=== PATIENT | female | born 2000 | race Caucasian/White ===

== ENCOUNTER 2022-04-07 11:27 | Emergency (ER) | payer MEDICAID, SELFPAY ==
--- NOTE | ~2022-04-07 | US_ITS ---
EXAMINATION: US OB <=14 wk fetus w TV DATE: 04/07/2022 14:56 INDICATION: Metal bleeding. Pelvic cramping. TECHNIQUE: Real-time transabdominal and transvaginal pelvic ultrasound was performed. COMPARISON: None. FINDINGS: TRANSABDOMINAL ULTRASOUND: The uterus measures 7.4 x 5.0 x 6.1 cm. TRANSVAGINAL ULTRASOUND: There is an intrauterine gestational sac. A yolk sac is identified. The fet al crown rump length measures 0.5 cm, which correlates with an estimated gestational age of 6 weeks a nd 1 day(s) (+/-) 3 day(s). heart motion is identified by cine imaging. There is a small subcho rionic hematoma. The right ovary measures 2.7 x 2.3 x 2.6 cm. The left ovary measures 2.6 x 1.7 x 1.4 cm. There is trace free fluid in the pelvis. IMPRESSION: 1. Single living intrauterine gestation with estimated date of delivery of 11/30/2022. 2. Small subchorionic hematoma. Reviewed, dictated and finalized at location A. IMPRESSION: 1. Single living intrauterine gestation with estimated date of delivery of 11/30. 2. Small subchorionic hematoma.
[2022-04-07 11:46] VITALS: BP 112/79; PULSE 109; RESP 14; TEMP 36.7; O2SAT 100
[2022-04-07 11:57] LABS: Basophils Percent Auto 0.6 % (0.2-1.2); Eosinophils Absolute Auto 0.1 K/mm3 (0-0.3); Eosinophils Percent Auto 1.5 % (0-4.4); Hematocrit 39.3 % (37.0-47.0); Hemoglobin 13.9 g/dL (12.0-15.0); Immature Granulocyte Absolute 0.02 K/mm3 (0.00-0.031); Immature Granulocyte Percent A 0.3 % (0-0.5); Lymphocytes Absolute Auto 2.09 K/mm3 (0.9-3.2); Lymphocytes Percent Auto 30.6 % (18.3-44.2); Mean Corpuscular HGB Conc 35.4 g/dl (32-36); Mean Corpuscular Hemoglobin 30.3 pg (26-34); Mean Corpuscular Volume 85.6 fl (80-100); Mean Platelet Volume 9.3 fl (7.4-10.4); Monocytes Absolute Auto 0.4 K/mm3 (0.1-0.6); Neutrophils Absolute Auto 4.2 K/mm3 (1.3-6.7); Platelet Count Result 229 k/mm3 (150-375); Red Blood Count 4.59 M/mm3 (4.2-5.4); White Blood Count 6.8 K/mm3 (4.5-10.0)
--- NOTE | 2022-04-07 13:49 | ED.FEMALEGU ---
HPI - Female Genitourinary General Chief complaint: Vaginal Bleeding <Ene Irizarry PA-C - Last Filed: 04/07/22 18:57> Stated complaint: miscarrying possibly <Ene Irizarry PA-C - Last Filed: 04/07/22 18:57> Time Seen by Provider: 04/07/22 13:36 <Ene Irizarry PA-C - Last Filed: 04/07/22 18:57> History of Present Illness HPI Narrative: Patient is a 21-year-old female who is currently about 5 weeks by last menstrual cycle here for evaluation of vaginal spotting and right-sided abdominal pain for the past 3 hours. Patient states that she has noted bright red blood in her underwear, but has not had enough bleeding to go through her menstrual pad. She also notes a cramping in the right side of her pelvis that has been intermittent in nature that she likens to her menstrual cramps. Patient expresses concern that she is miscarrying. She has not yet established with an UI SOFTWARE DEVELOPER. Has not yet had an ultrasound to confirm IUP. She has not taken any medication for pain, denies nausea, vomiting, fevers, chills, vaginal discharge, dysuria urgency or frequency, leg swelling. <Ene Irizarry PA-C - Last Filed: 04/07/22 18:57> Review of Systems Review of Systems: Gen.: Denies fevers or chills Eyes: Denies eye pain or visual change ENT: Denies congestion Respiratory: Denies shortness of breath or cough CV: Denies chest pain or palpitations GI: Reports abdominal pain. Denies nausea, emesis or diarrhea reports vaginal bleeding. Denies burning, urgency, frequency or hematuria Musculoskeletal: Denies back pain or muscle pain Neuro: Denies numbness, tingling, weakness or focal weakness Skin: Denies rash Except as documented, all other systems reviewed and negative <Ene Irizarry PA-C - Last Filed: 04/07/22 18:57> Exam Narrative: APPEARANCE: Well appearing, no pain in distress, well-nourished. Head: Normocephalic and atraumatic. EYES: PERRLA/EOMI, conjunctivae clear NOSE: No nasal drainage EARS: External ear normal in appearance THROAT: Oropharynx is clear. Mucous membranes are moist. NECK: Supple. No adenopathy, no masses. RESPIRATORY: Airway patent, respirations nonlabored. Clear to auscultation bilaterally, no rales, rhonchi, wheezing. CARDIOVASCULAR: Regular rate and rhythm without murmurs, rubs, or gallops. ABDOMINAL: Normoactive bowel sounds. Soft, nontender, nondistended. No rebound tenderness or guarding. : Cervical os is closed, scant amount of blood noted in vaginal vault, no brisk bleed MUSCULOSKELETAL: Extremities are warm and well-perfused. Moves all extremities well. No edema. NEURO: Normal speech. No focal neurologic deficits. SKIN: Skin is warm and dry. No rashes. PSYCHIATRIC: Normal affect/mood.. <Ene Irizarry PA-C - Last Filed: 04/07/22 18:57> Course TIGER MACHINE OPERATOR/PA Physician Supervision For this patient encounter, I reviewed the TIGER MACHINE OPERATOR or PA documentation, treatment plan, and medical decision making. I was available for consultation as needed. <Bianka Ward MD - Last Filed: 04/07/22 23:55> Vital Signs Vital signs: Vital Signs Temperature 98.1 F 04/07/22 11:46 Pulse Rate 109 H 04/07/22 11:46 Respiratory Rate 14 04/07/22 11:46 Blood Pressure 112/79 04/07/22 11:46 Pulse Oximetry 100 04/07/22 11:46 Oxygen Delivery Room Air 04/07/22 11:46 Temperature 98.1 F 04/07/22 11:46 Pulse Rate 86 04/07/22 15:33 Respiratory Rate 16 04/07/22 15:33 Blood Pressure 124/86 04/07/22 15:33 Pulse Oximetry 99 04/07/22 15:33 Oxygen Delivery Room Air 04/07/22 11:46 <Ene Irizarry PA-C - Last Filed: 04/07/22 18:57> Vital Signs Temperature 98.1 F 04/07/22 11:46 Pulse Rate 109 H 04/07/22 11:46 Respiratory Rate 14 04/07/22 11:46 Blood Pressure 112/79 04/07/22 11:46 Pulse Oximetry 100 04/07/22 11:46 Oxygen Delivery Room Air 04/07/22 11:46 Temperature 98.1 F 04/07/22
[2022-04-07 15:33] VITALS: BP 124/86; PULSE 86; RESP 16; O2SAT 99
== END 2022-04-07 15:44 | disposition home or self-care (01) ==
PROVIDERS: Emergency Medicine; Emergency Provider Emergency Medicine
DX: O46.8X1 Other antepartum hemorrhage, first trimester (principal); Z3A.01 Less than 8 weeks gestation of pregnancy
CPT/HCPCS: 36415; 76801; 76817; 84702; 85025; 85461; 99284

== ENCOUNTER 2022-05-26 18:57 | Emergency (ER) | payer MEDICAID, SELFPAY ==
[2022-05-26 19:25] VITALS: PULSE 94; RESP 14; TEMP 37; O2SAT 100
[2022-05-26 19:35] LABS: Basophils Percent Auto 0.3 % (0.2-1.2); Eosinophils Absolute Auto 0.1 K/mm3 (0-0.3); Eosinophils Percent Auto 0.7 % (0-4.4); Hematocrit 39.4 % (37.0-47.0); Hemoglobin 13.9 g/dL (12.0-15.0); Immature Granulocyte Absolute 0.04 K/mm3 (0.00-0.031); Immature Granulocyte Percent A 0.5 % (0-0.5); Lymphocytes Absolute Auto 1.76 K/mm3 (0.9-3.2); Lymphocytes Percent Auto 20.3 % (18.3-44.2); Mean Corpuscular HGB Conc 35.3 g/dl (32-36); Mean Corpuscular Hemoglobin 30.4 pg (26-34); Mean Corpuscular Volume 86.2 fl (80-100); Mean Platelet Volume 9.4 fl (7.4-10.4); Monocytes Absolute Auto 0.4 K/mm3 (0.1-0.6); Neutrophils Absolute Auto 6.4 K/mm3 (1.3-6.7); Neutrophils Percent Auto 73.2 % (45.5-73.1); Platelet Count Result 219 k/mm3 (150-375); Red Blood Count 4.57 M/mm3 (4.2-5.4); Red Cell Distribution Width 12.8 % (11.5-14.5); White Blood Count 8.7 K/mm3 (4.5-10.0)
[2022-05-26 19:36] VITALS: BP 117/74; PULSE 91; RESP 18; O2SAT 100
[2022-05-26 20:12] VITALS: BP 121/84; BP 128/77; BP 134/89; PULSE 100; PULSE 88; PULSE 99
[2022-05-26] MEDS: SODIUM CHLORIDE 0.9% IV 1,000 ML 999 ML IV CONT (20:20)
--- NOTE | 2022-05-26 20:32 | ED.GENADULT ---
HPI - General Adult General Chief complaint: Vaginal Bleeding Stated complaint: 12 weeks with vaginal bleeding - dizzy Time Seen by Provider: 05/26/22 19:47 History of Present Illness HPI narrative: Patient 21-year-old female presents emergency department complaining of vaginal bleeding. Patient reports that she had some spotting previously was diagnosed with a twin IUP with subchorionic hemorrhage. Patient reports that today she was at the store and felt as though she started bleeding. Patient states she about 1 pad reports that she is still having some bleeding at this time. Patient reports that she has history of a documented twin IUP reports she is Rh+ reports this is her first . Related Data Home Medications Medication Instructions Recorded Confirmed No Home Medications 05/11/22 05/11/22 Allergies Allergy/AdvReac Type Severity Reaction Status Date / Time No Known Allergies Allergy Verified 05/26/22 19:28 Review of Systems Review of Systems: A 10 system review of systems was completed on the patient and is negative except for what is stated in the HPI. Nursing and ancillary documentation was reviewed. [facility] Past Medical History Medical History Family History Family History Other Liver cancer Social History Social History Smoking status: Never smoker Alcohol intake: never Substance use: never Substance use type: does not use Gender identity (if verbalized by the patient): Female Sexual Orientation (if Verbalized by the Patient): Straight or Heterosexual Exam Narrative: GENERAL: Well-appearing, well-nourished, and in no acute distress. HEAD: Normocephalic, atraumatic. EYES: PERRLA and EOMI. ENT: Nares clear, no rhinorrhea or epistaxis. Mucous membranes moist. NECK: Supple. CHEST: Clear to auscultation. No respiratory distress. HEART: Regular rate and rhythm. No murmur heard. Normal peripheral pulses. ABDOMEN: Soft, nontender, nondistended, normal active bowel sounds. EXTREMITIES: Normal range of motion. No edema. SKIN: Warm, dry, no rash. NEURO: No focal deficits. Alert and oriented x3. PSYCH: Normal mood and affect. Course Vital Signs Vital signs: Vital Signs Temperature 37.0 C 05/26/22 19:25 Pulse Rate 94 05/26/22 19:25 Respiratory Rate 14 05/26/22 19:25 Pulse Oximetry 100 05/26/22 19:25 Oxygen Delivery Room Air 05/26/22 19:25 Temperature 37.0 C 05/26/22 19:25 Pulse Rate 100 05/26/22 20:12 Respiratory Rate 18 05/26/22 19:36 Blood Pressure 121/84 05/26/22 20:12 Pulse Oximetry 100 05/26/22 19:36 Oxygen Delivery Room Air 05/26/22 19:25 Medical Decision Making MDM Narrative Medical decision making narrative: Bedside transabdominal ultrasound performed by me showed a twin IUP with positive cardiac activity Vital Signs Vital Signs: Vital Signs Temperature 37.0 C 05/26/22 19:25 Pulse Rate 94 05/26/22 19:25 Respiratory Rate 14 05/26/22 19:25 Pulse Oximetry 100 05/26/22 19:25 Oxygen Delivery Room Air 05/26/22 19:25 Temperature 37.0 C 05/26/22 19:25 Pulse Rate 100 05/26/22 20:12 Respiratory Rate 18 05/26/22 19:36 Blood Pressure 121/84 05/26/22 20:12 Pulse Oximetry 100 05/26/22 19:36 Oxygen Delivery Room Air 05/26/22 19:25 Lab Data Result diagrams: 05/26/22 19:29 Labs: Lab Results 05/26/22 05/26/22 Range/Units 19:29 19:29 WBC 8.7 (4.5-10.0) K/mm3 RBC 4.57 (4.2-5.4) M/mm3 Hgb 13.9 (12.0-15.0) g/dL Hct 39.4 (37.0-47.0) % MCV 86.2 (80-100) fl MCH 30.4 (26-34) pg MCHC 35.3 (32-36) g/dl RDW 12.8 (11.5-14.5) % Plt Count 219 (150-375) k/mm3 MPV 9.4 (7.4-10.4) fl Immature Gran % (Auto) 0.5 (0-0.5
[2022-05-26 21:19] VITALS: BP 118/75; PULSE 96; RESP 16; TEMP 36.8; O2SAT 100
== END 2022-05-26 21:21 | disposition home or self-care (01) ==
PROVIDERS: Physician Assistant; Emergency Provider Emergency Medicine; PCP Obstetrics & Gynecology
DX: O20.0 Threatened abortion (principal); O30.002 Twin pregnancy, unspecified number of placenta and unspecified number of amniotic sacs, second trimester; Z3A.12 12 weeks gestation of pregnancy
CPT/HCPCS: 36415; 84702; 85025; 85461; 96360; 99284; J7030

== ENCOUNTER 2022-07-20 18:59 | Emergency (ER) | payer OTHER, SELFPAY ==
[2022-07-20 19:04] VITALS: BP 126/68; PULSE 83; RESP 16; TEMP 36.1; O2SAT 100
--- NOTE | 2022-07-20 19:07 | ED.URI ---
HPI - URI/Sore Throat General Chief Complaint: Upper Respiratory Infection Stated Complaint: Cough/Runny Nose Time Seen by Provider: 07/20/22 19:12 Source: patient and RN notes reviewed Mode of arrival: ambulatory Limitations: no limitations History of Present Illness HPI Narrative: 22-year-old female who is 20 weeks presents concern for ongoing cough, sinus congestion pressure. Reports she had flu 3 weeks and symptoms have not improved, but are worsening. She has been taking Tylenol cold and flu as instructed by her electrical fitter MD elicited complaint: cough and sore throat Related Data Allergies Allergy/AdvReac Type Severity Reaction Status Date / Time No Known Allergies Allergy Verified 07/06/22 10:15 Review of Systems Review of Systems: CONSTITUTIONAL: Reports malaise, fever. EYES: Denies visual changes, redness, or discharge. ENT: Reports rhinorrhea, congestion, sinus pain. Denies Otalgia and sore throat. CARDIOVASCULAR: Denies chest pain, palpitations, or edema. RESPIRATORY: Reports persistent cough. Denies dyspnea. GASTROINTESTINAL: Denies abdominal pain, nausea, vomiting, diarrhea SKIN: Denies rash or itching. MUSCULOSKELETAL: Denies myalgia. NEUROLOGIC: Denies headache. All systems reviewed & are unremarkable except as noted in HPI and below PMFSH Past Medical History Medical History Family History Family History Other Liver cancer Social History Social History Smoking status: Never smoker Alcohol intake: never Substance use: never Substance use type: does not use Gender identity (if verbalized by the patient): Female Sexual Orientation (if Verbalized by the Patient): Straight or Heterosexual Comments At time of signature, agree with nursing past medical, surgical, social and family history. There is no relevant family history pertinent to the presenting complaint Exam Narrative: GENERAL: Nontoxic-appearing and in no acute distress. HEAD: Normocephalic EYES: PERRLA, conjunctivae clear ENT: Nares clear, turbinates edematous and erythematous. Mucous membranes moist. TM pearly moreno with dull light reflex bilaterally; no tragal tenderness. Oropharynx not erythematous without lesions. Tonsils not enlarged and without exudate, no drooling, no hoarseness, no trismus, uvula midline. NECK: Supple. No lymphadenopathy CHEST: Clear to auscultation, breath sounds equal. No wheezing, rhonchi, rales, or stridor. No respiratory distress, speaks in full sentences. HEART: Regular rate and rhythm. No murmur heard. SKIN: Warm, dry, no rash. NEURO: Alert and oriented x3. PSYCH: Normal mood and affect Course Course Emergency Course: Patient is aware of diagnosis, understands and agrees to treatment plan. Anticipatory guidance given. Patient agrees to follow-up as directed and is aware of reasons to seek care at the emergency department. Portions of this record may have been created with voice recognition software Level of Care: Express Care Visit Vital Signs Vital signs: Reviewed. MDM - URI/Sore Throat MDM Narrative Medical decision making narrative: Differential diagnosis considered: Garay virus, strep pharyngitis, allergic rhinitis, upper respiratory tract infection, sinusitis, rhinosinusitis, nasopharyngitis. viral pharyngitis, otitis media, otitis externa, pneumonia, bronchitis, viral cough syndrome, viral syndrome, and influenza. Exam findings show no acute concerns or changes; patient is non-toxic appearing and is in no distress. Patient is appropriate for outpatient treatment and follow-up. Lab Data Attestation: I reviewed the patient's lab results. Critical Care Time Critical Care Time Critical Care Time: No Discharge Plan Discharge Clinical Impression: Sinobronchitis Patient Disposition: Home, Self-
== END 2022-07-20 19:28 | disposition home or self-care (01) ==
PROVIDERS: Emergency Provider Nurse Practitioner
DX: J40 Bronchitis, not specified as acute or chronic (principal)
CPT/HCPCS: 99213; G0463

== ENCOUNTER 2022-07-30 15:26 | Observation (INO) | payer OTHER, SELFPAY ==
[2022-07-30 16:02] VITALS: BP 117/72; PULSE 94
[2022-07-30 16:06] LABS: Add Urine Microscopic? YES; Appearance Urine Slightly Cloudy (Clear); Bilirubin Urine Negative (Negative); Blood Urine Negative (Negative); Color Urine Yellow (Yellow); Glucose Urine UA Trace mg/dL (Negative); Ketones Urine Trace mg/dL (Negative); Leukocyte Esterase Ur Negative LEU/UL (Negative); Nitrate Urine Negative (Negative); Protein Urine Negative (Negative); Urobilinogen Urine 0.2 mg/dL (<2.0)
--- NOTE | 2022-07-30 16:07 | OBADM ---
This patient, Tova Flores, admitted to the OB room OB Post 116 for observation. Patient/family oriented to hospital policies and general routines including ID bracelet, bed and alarms, visiting hours, pain management, procedures, bathroom and other care routines, personal items, smoking policy, room service/diet, and visiting hours. Patient/Family are encouraged to report perceived risks to care and to ask questions if they do not understand what they are told or what they should do.
[2022-07-30 16:17] LABS: Bacteria Urine Trace /hpf; Mucus Urine Rare /lpf; RBC Urine 0-2 /hpf (0-2); Squamous Epithelial Cell Urine Few /hpf (Few); WBC Urine 0-3 /hpf
[2022-07-30] MEDS: NIFEdipine 10 MG CAPSULE PO (16:51)
[2022-07-30 16:55] VITALS: BP 114/75; PULSE 92
[2022-07-30 17:35] VITALS: BP 117/46; PULSE 152
--- NOTE | 2022-08-09 09:02 | P.PNOB_ITS ---
OB - Triage/Final Diagnosis Visit Information Reason for evaluation: other ( pelvic pressure) Comments/Additional reasons for admission: I have assessed the risk for this patient, Tova Flores, and determined that she would benefit from observation care. Evaluation Laboratory results: Laboratory Tests 07/30/22 15:58 Urine Color Yellow Urine Appearance Slightly cloudy Urine pH 6.0 Ur Specific [place] 1.020 Urine Protein Negative Urine Glucose (UA) Trace H Urine Ketones Trace Ur Blood (Man) Negative Urine Nitrate Negative Urine Bilirubin Negative Urine Urobilinogen 0.2 Leukocyte Esterase Rfl Negative Urine RBC 0-2 Urine WBC 0-3 Ur Squamous Epith Cells Few Urine Bacteria Trace Urine Mucus Rare
== END 2022-07-30 19:35 | disposition home or self-care (01) ==
PROVIDERS: Admitting Provider Obstetrics & Gynecology; Visit Provider Obstetrics & Gynecology Gynecology
DX: O26.892 Other specified pregnancy related conditions, second trimester (principal); R10.2 Pelvic and perineal pain; Z3A.21 21 weeks gestation of pregnancy
CPT/HCPCS: 81001; 84112; A9270; G0378; G0379

== ENCOUNTER 2022-09-14 11:10 | Outpatient (CLI) | payer OTHER, SELFPAY ==
[2022-09-14 12:39] LABS: Basophils Percent Auto 0.4 % (0.2-1.2); Eosinophils Absolute Auto 0.1 K/mm3 (0-0.3); Eosinophils Percent Auto 1.1 % (0-4.4); Hematocrit 32.2 % (37.0-47.0); Hemoglobin 10.9 g/dL (12.0-15.0); Immature Granulocyte Absolute 0.09 K/mm3 (0.00-0.031); Immature Granulocyte Percent A 1.1 % (0-0.5); Lymphocytes Absolute Auto 1.44 K/mm3 (0.9-3.2); Lymphocytes Percent Auto 17.8 % (18.3-44.2); Mean Corpuscular HGB Conc 33.9 g/dl (32-36); Mean Corpuscular Hemoglobin 30.3 pg (26-34); Mean Corpuscular Volume 89.4 fl (80-100); Mean Platelet Volume 9.8 fl (7.4-10.4); Monocytes Absolute Auto 0.5 K/mm3 (0.1-0.6); Monocytes Percent Auto 6.7 % (2.6-8.5); Neutrophils Absolute Auto 5.9 K/mm3 (1.3-6.7); Neutrophils Percent Auto 72.9 % (45.5-73.1); Platelet Count Result 156 k/mm3 (150-375); Red Cell Distribution Width 12.6 % (11.5-14.5); White Blood Count 8.1 K/mm3 (4.5-10.0)
[2022-09-14 12:54] LABS: Glucose 1 Hour PP 50gm Dose 93 mg/dL
[2022-09-14 13:35] LABS: HIV 1/2 Ab P24 Ag Result Negative (Negative)
== END 2022-09-14 11:11 | disposition home or self-care (01) ==
LOC: ANHLAB 11:12
PROVIDERS: Visit Provider Obstetrics & Gynecology
DX: Z34.90 Encounter for supervision of normal pregnancy, unspecified, unspecified trimester (principal)
CPT/HCPCS: 36415; 82947; 85025; 86703; G0432

== ENCOUNTER 2022-09-16 19:08 | Observation (INO) | payer OTHER, SELFPAY ==
[2022-09-16] VITALS (22 sets, daily range): BP systolic 105–116; BP diastolic 66–80; PULSE 80–132; RESP 18; TEMP 36.8; O2SAT 94–99
--- NOTE | 2022-09-16 21:29 | OBADM ---
This patient, Tova Flores, admitted to the OB room OB Post 113 for observation. Patient/family oriented to hospital policies and general routines including ID bracelet, bed and alarms, visiting hours, pain management, procedures, bathroom and other care routines, personal items, smoking policy, room service/diet, and visiting hours. Patient/Family are encouraged to report perceived risks to care and to ask questions if they do not understand what they are told or what they should do.
--- NOTE | 2022-09-20 09:24 | PM.OBTRLD ---
OB - Triage/Final Diagnosis Visit Information Date of evaluation: 09/16/22 Reason for evaluation: other (leakage of fluid) Comments/Additional reasons for admission: I have assessed the risk for this patient, Tova Brenda Flores, and determined that she would benefit from observation care.
== END 2022-09-16 21:30 | disposition home or self-care (01) ==
PROVIDERS: Admitting Provider Student in an Organized Health Care Education/Training Program; Visit Provider Student in an Organized Health Care Education/Training Program
DX: O42.913 Preterm premature rupture of membranes, unspecified as to length of time between rupture and onset of labor, third trimester (principal); Z3A.28 28 weeks gestation of pregnancy
CPT/HCPCS: G0378; G0379